=== PATIENT | female | born 1995 | race Caucasian/White ===

== ENCOUNTER 2017-04-08 19:27 | Emergency (ER) | payer BC ==
[2017-04-08 20:30] VITALS: BP 124/81
--- NOTE | 2017-04-08 20:43 | UC ---
FLU HPI - HPI Summary HPI Summary: Pt presents with dry cough, sinus pain/pressure/congestion, body aches, and fatigue that started yesterday. She is recently back to school and everyone is sick with the flu. She has been taking ibuprofen with mild relief of her symptoms. Has felt feverish, but has not taken her temperature. Denies SOB, chest pain, abdominal pain, n/v/d/c. - History of Current Complaint Chief Complaint: UCRespiratory Stated Complaint: COUGH,CONGESTED Time Seen by Provider: 04/08/17 20:41 Hx Obtained From: Patient Hx Last Menstrual Period: 2 WEEKS AGO Severity Currently: Mild Severity Initially: Mild Pain Intensity: 4 Pain Scale Used: 0-10 Numeric - Allergy/Home Medications Allergies/Adverse Reactions: Allergies Allergy/AdvReac Type Severity Reaction Status Date / Time No Known Allergies Allergy Verified 04/08/17 20:36 Home Medications: Home Medications Cetirizine* [ZyrTEC 10 MG TAB*] 1 tab PO DAILY 04/08/17 [History Confirmed 04/08] Dextromethorphan-Phenylephrine [Tylenol Cold Max 10-5-325 mg/15Ml] 30 ml PO TID PRN 04/08/17 [History Confirmed 04/08/17] Pseudoephedrine-Guaifenesin [Mucinex D 60-600 mg] 1 tab PO BID PRN 04/08/17 [ History Confirmed 04/08/17] PMH/Surg Hx/FS Hx/Imm Hx Previously Healthy: Yes - Surgical History Surgical History: None - Social History Occupation: Student Lives: Dormitory/Roommates Alcohol Use: Occasionally Substance Use Type: None Smoking Status (MU): Never Smoked Tobacco Review of Systems Constitutional: Fever, Fatigue, Other - Body aches Skin: Negative Eyes: Negative ENT: Negative Respiratory: Cough Cardiovascular: Negative Gastrointestinal: Negative Neurovascular: Negative Musculoskeletal: Negative Neurological: Negative Psychological: Negative All Other Systems Reviewed And Are Negative: Yes Physical Exam Triage Information Reviewed: Yes Appearance: No Pain Distress, Ill-Appearing, Obese Vital Signs: Initial Vital Signs Temp 100.7 F 04/08/17 20:22 Pulse 118 04/08/17 20:22 Resp 16 04/08/17 20:22 BP 124/81 04/08/17 20:22 Pulse Ox 100 04/08/17 20:22 Vital Signs Reviewed: Yes Eyes: Positive: Conjunctiva Clear. Negative: Conjunctiva Inflamed, Discharge ENT: Positive: Hearing grossly normal, Pharyngeal erythema, Nasal congestion, TMs normal, Uvula midline. Negative: Nasal drainage, TM bulging, TM dull, TM red, Tonsillar swelling, Tonsillar exudate, Hoarse voice, Sinus tenderness Neck: Positive: Supple, Nontender, No Lymphadenopathy Respiratory: Positive: Chest non-tender, Lungs clear, Normal breath sounds, No respiratory distress, No accessory muscle use Cardiovascular: Positive: No Murmur, Pulses Normal Neurological: Positive: Alert Psychological: Positive: Age Appropriate Behavior Skin: Negative: rashes Flu Course/Dx - Course Course Of Treatment: POC flu A positive - tamiflu - Differential Dx/Diagnosis Provider Diagnoses: Influenza A Discharge - Discharge Plan Condition: Stable Disposition: HOME Prescriptions: Oseltamivir CAP* [Tamiflu CAP*] 75 mg PO BID #10 cap Patient Education Materials: Influenza (ED) Referrals: Phylicia Cates MD [Primary Care Provider] - Additional Instructions: If you develop a fever, shortness of breath, chest pain, new or worsening symptoms - please call your PCP or go to the ED. 1) Rest and drink plenty of fluids! 2) May take tylenol or ibuprofen as needed for fever and discomfort.
[2017-04-08] MEDS ORDERED: Oseltamivir CAP* 75 MG CAP PO ONE (21:09)
== END 2017-04-08 21:32 | disposition home or self-care (01) ==
LOC: UCEAST 19:27
DX: J11.1 Influenza due to unidentified influenza virus with other respiratory manifestations (principal); E66.9 Obesity, unspecified
CPT/HCPCS: 87502; 99212; A9270-GY; G0463